=== PATIENT | male | born 1960 | race Hispanic/Latino ===

== ENCOUNTER 2017-11-18 15:36 | Emergency (ER) | payer SELFPAY ==
[2017-11-18 16:05] LABS: #Basophils 0.1 thou/uL (0.0-0.2); #Eosinphils 0.2 thou/uL (0.0-0.7); #Lymphocytes 2.6 thou/uL (1.20-3.40); #Monocytes 1.1 thou/uL (0.11-0.59); #Neutrophils 6.5 thou/uL (1.40-6.50); %Basophils 0.6 % (0.0-1.0); %Eosinophils 1.8 % (0.0-10.0); %Lymphocytes 24.9 % (21.0-51.0); %Monocytes 10.7 % (0.0-10.0); %Neutrophils 61.9 % (42.0-75.0); Hemoglobin 16.1 g/dL (14.0-18.0); Mean Corpuscular HGB CONC 33.9 g/dL (32.0-36.0); Mean Corpuscular Hemoglobin 31.2 pg (27.0-31.0); Mean Corpuscular Volume 92.1 fl (80.0-94.0); Platelet Count 238 thou/uL (130-400); RBC Distribution Width 11.9 % (11.5-14.5); Red Blood Cell (RBC) Count 5.15 mill/uL (4.70-6.10); White Blood Cell (WBC) Count 10.5 thou/uL (4.8-10.8)
--- NOTE | 2017-11-18 16:16 | CT ---
CT ABDOMEN AND PELVIS 11/18/17 COMPARISON: None. HISTORY: Right sided flank pain for two days. TECHNIQUE: Serial axial CT imaging is obtained at 5 mm intervals from the lung bases through pubic symphysis wit hout contrast. Coronal reformatted imaging obtained. FINDINGS: The lack of contrast limits assessment of the viscera, bowel, vascular structures and for lymphadenop athy. The imaged lung bases appear grossly unremarkable. No free intraperitoneal air or fluid is seen. Smal l fat containing inguinal hernia noted on the right. The liver, gallbladder, spleen, pancreas, and adrenal glands are unremarkable. There is an extrarenal pelvis on the left. There is no evidence for obstructive uropathy on the left. There are two punctate nonobstructing stones within the mid pole of the left kidney. There is mild hydronephrosis and hydroureter on the right secondary to an obstructing stone within th e mid right ureter at the axial level of the L4 vertebral body. This stone within the mid right urete r measures approximately 3-4 mm. No additional stone is seen within the right ureter. Limited assessment of the bowel demonstrates no acute finding. There is degenerative change involving the lumbar spine with mild multilevel disc space narrowing and osteophyte formation. IMPRESSION: Obstructive uropathy on the right secondary to a 3-4 mm obstructing stone within the mid right ureter . POS: [facility]
[2017-11-18 16:29] LABS: ALT (SGPT) 26 U/L (8-55); AST (SGOT) 15 U/L (5-34); Albumin 4.5 g/dL (3.5-5.0); Alkaline Phosphatase 97 U/L (40-150); Anion Gap 16 mmol/L (10-20); BUN (Urea Nitrogen) 20 mg/dL (8.4-25.7); Bilirubin, Total 0.5 mg/dL (0.2-1.2); Calc. Creatinine Clearance 0 mL/min (70-130); Calcium 9.4 mg/dL (7.8-10.44); Carbon Dioxide 26 mmol/L (22-29); Chloride 101 mmol/L (98-107); Estimated GFR-MDRD 46; Globulin 3.8 g/dL (2.4-3.5); Glucose 113 mg/dL (70-105); Potassium 4.6 mmol/L (3.5-5.1); Protein, Total 8.3 g/dL (6.0-8.3); Sodium 138 mmol/L (136-145)
[2017-11-18 16:51] LABS: Bilirubin Negative (Negative); Blood, Urine Negative (Negative); Clarity CLEAR (Clear); Glucose, Urine (Dipstick) Negative (Negative); Leukocyte Negative (Negative); Nitrite Negative (Negative); Protein, Urine (Dipstick) Negative (Neg-Trace); Specific Gravity, Urine 1.025 (1.002-1.036); Urobilinogen 0.2 mg/dL (0.2-1.0); pH, Urine 5.5 (5.0-9.0)
== END 2017-11-18 17:45 | disposition home or self-care (01) ==
LOC: ERS 15:36
DX: N13.2 Hydronephrosis with renal and ureteral calculous obstruction (principal)
CPT/HCPCS: 74176; 80053; 81003; 85025